=== PATIENT | female | born 1990 | race African-American/Black ===

== ENCOUNTER 2016-11-08 18:19 | Emergency (ER) | payer MEDICAID ==
[~2016-11-08] VITALS: Ht 170.2 cm; Wt 83.0 kg
[2016-11-08 18:24] VITALS: BP 118/80; PULSE 98; RESP 16; TEMP 98.5; O2SAT 100
[2016-11-08] MEDS ORDERED: SODIUM CHLOR 0.9% 1000 ML INJ 1,000 ML IV ONE (18:49)
[2016-11-08] MEDS ORDERED: METOCLOPRAMIDE HCL 10 MG/2 ML VIAL IVP ONE (19:00)
[2016-11-08] MEDS ORDERED: KETOROLAC TROMETHAMINE 30 MG/ML (IVP) VIAL IVP ONE (19:00)
[2016-11-08] MEDS ORDERED: diphenhydrAMINE HCL 50 MG/ML VIAL IVP ONE (19:00)
--- NOTE | 2016-11-08 19:36 | PD ---
HPI Chief Complaint: Headache Time Seen by Provider: 19:00 Travel History International Travel<30 days: No Contact w/Intl Traveler<30days: No Traveled to known affect area: No History of Present Illness HPI 26-year-old female with history of migraines presents to the emergency room for evaluation of headache for the past several hours. Patient states headache is mostly on the right side but goes all around her head. It is severe. She took BC powder at onset which typically prevents her from migraines from getting out of control but it did not work this time. States it feels like her typical migraine but slightly more severe. She has associated photophobia, phonophobia , and nausea. No vomiting. It is not the worst headache she has had in her life. Patient denies any trauma or injury to the head. Denies fever, neck pain , chills. She is not on blood thinners. No chronic medical conditions or daily medications. PFSH Past Medical History Hx Anticoagulant Therapy: No Diabetes: No Diminished Hearing: No Genitourinary: Yes (LT OVARIAN CYST) Headaches: Yes Immunizations Current: No Migraines: Yes ?: Unknown : 4 Para: 2 Miscarriage: 0 : 1 Ovarian Cysts: Yes (left ovary) Social History Alcohol Use: No Tobacco Use: No Substance Use: No Allergies-Medications (Allergen,Severity, Reaction): Coded Allergies: No Known Allergies (Verified , 11/08/16) Reported Meds & Prescriptions Reported Meds & Active Scripts Active No Active Prescriptions or Reported Medications Review of Systems Except as stated in HPI: all other systems reviewed are Neg Physical Exam Narrative GENERAL: Well-nourished, well-developed female in no acute distress. Afebrile. Ambulatory. Sitting up in a bright room and communicating without difficulty. SKIN: Focused skin assessment warm/dry. HEAD: Normocephalic. EYES: No scleral icterus. No injection or drainage. NECK: Supple, trachea midline. No JVD or lymphadenopathy. EARS: Bilateral pinnae and external canals appear within normal limits. Bilateral tympanic membranes without erythema, dullness or perforation. No hemotympanum. CARDIOVASCULAR: Regular rate and rhythm without murmurs, gallops, or rubs. RESPIRATORY: Breath sounds equal bilaterally. No accessory muscle use. NEUROLOGICAL: Awake and alert. Cranial nerves II through XII intact. Motor and sensory grossly within normal limits. Five out of 5 muscle strength in all muscle groups. Normal speech. Data Data Last Documented VS Vital Signs Date Time Temp Pulse Resp B/P Pulse Ox O2 Delivery O2 Flow Rate FiO2 11/08/16 18:24 98.5 98 16 118/80 100 Orders Iv Access Insert/Monitor (11/08/16 18:49) Ketorolac Inj (Toradol Inj) (11/08/16 19:00) Diphenhydramine Inj (Benadryl Inj) (11/08/16 19:00) Metoclopramide Inj (Reglan Inj) (11/08/16 19:00) Sodium Chlor 0.9% 1000 Ml Inj (Ns 1000 M (11/08/16 18:49) MDM Medical Decision Making Medical Screen Exam Complete: Yes Emergency Medical Condition: Yes Medical Record Reviewed: Yes Differential Diagnosis Headache, migraine, tension headache, traumatic headache Narrative Course 26 year-old female with history of migraines presents to the emergency room for evaluation of a headache that started several hours prior to arrival. States it feels like a typical migraine but worse. Patient states this is not the worst headache she has had in her life. Vital signs stable. Resting comfortably in bed. Patient is sitting up in a bright room and communicating without difficulty. No focal neurological deficits. No indication for imaging at this time. Patient was given Toradol, Benadryl, Reglan, and 1 L of fluids. States she fells marked improvement after medication. She was told to follow- up with the primary care physician or return for worsening symptoms. She understands and agrees to plan. Of note, she brought her son to the emergency room today for fever. Diagnosis Primary Impression: GIVENS (headache) Qualified Code: G44.209 - Acute non intractable tension-type headache Referrals: Primary Care Physician Patient Instructions: Acute Headache (ED), General Instructions Additional Instructions: Rest and drink plenty of fluids. Take ibuprofen with food as directed, as needed for pain. Follow-up with a primary care physician. Return to the emergency room for worsening symptoms. Scripts No Active Prescriptions or Reported Meds Disposition: 01 DISCHARGE HOME Condition: Stable Otilia Bateman Nov 08, 2016 19:36
[2016-11-08 20:16] VITALS: BP 118/74; PULSE 82; RESP 18; O2SAT 98
== END 2016-11-08 20:25 | disposition home or self-care (01) ==
LOC: PHED 18:19
DX: G44.209 Tension-type headache, unspecified, not intractable (principal)
CPT/HCPCS: 96361; 96374; 96375; 99284; J1200; J1885; J2765; J7030